=== PATIENT | male | born 1985 | race Two or more races ===

== ENCOUNTER 2019-08-20 17:11 | Emergency (ER) | payer SELFPAY ==
[~2019-08-20] VITALS: Ht 188 cm; Wt 136.1 kg
[2019-08-20] MEDS ORDERED: NAPROSYN500 MG PO (17:34)
--- NOTE | 2019-08-20 17:43 | Emergency Department Note ---
History of Present Illnes History of Present Illness History of Present Illness This is a 34 year old male . Arrival Mode: Car Rn Visiting Required: No Onset (how long ago): minute(s) (ESTIMATOR) Location: Left wrist Quality: pain Radiation: Reports non-radiation Severity: moderate Onset quality: sudden Timing of current episode: constant Progression: unchanged Context: Denies recent illness, Denies recent surgery, Denies recent immobilization, Denies recent travel, Denies trauma/injury, Denies new medications, Denies hx of DVT/PE, Denies non-compliance w/ medications, Denies other Relieving factors: other (Tylenol #3) Exacerbating factors: movement Associated symptoms: Denies denies other symptoms, Denies confusion, Denies chest pain, Denies cough, Denies diaphoresis, Denies fever/chills, Denies headaches, Denies loss of appetite, Denies malaise, Denies nausea/vomiting, Denies rash, Denies seizure, Denies shortness of breath, Denies syncope, Denies weakness, Denies other Treatments prior to arrival: other (Tylenol #3) Risk factors: Pt denies CP, jaw pain, sob, his left wrist pain is wore when he moves wris Past Medical/Family History Physician Review I have reviewed the patient's past medical and family history. Any updates have been documented here. Past Medical History Recent Fever: No Past Medical History: None Past Surgical History: None Social History Smoking Cessation: Smoker current status unk Alcohol Use: None Any Illegal Drug Use: No Review of Systems Review of Systems Constitutional: Denies no symptoms, Denies as per HPI, Denies chills, Denies diaphoresis, Denies fever, Denies malaise, Denies weakness, Denies other EENTM: Denies no symptoms, Denies as per HPI, Denies eye pain, Denies blurred vision, Denies tearing, Denies double vision, Denies ear pain, Denies ear discharge, Denies nose pain, Denies nose congestion, Denies throat pain, Denies throat swelling, Denies mouth pain, Denies mouth swelling, Denies other Cardiovascular: Denies no symptoms, Denies as per HPI, Denies chest pain, Denies edema, Denies palpitations, Denies syncope, Denies other Respiratory: Denies no symptoms, Denies as per HPI, Denies change in phlegm color, Denies chest congestion, Denies cough, Denies hemoptysis, Denies e xcessive phlegm production, Denies pain on inspiration, Denies pain with cough, Denies dyspnea, Denies dyspnea on exertion, Denies snoring, Denies stridor, Denies wheezing, Denies other Gastrointestinal: Denies no symptoms, Denies as per HPI, Denies abdominal pain, Denies constipation, Denies diarrhea, Denies nausea, Denies vomiting, Denies other Musculoskeletal: Reports joint pain Integumentary: Reports no symptoms Neurological: Reports no symptoms Psychological: Reports no symptoms Review of other systems: All other systems negative Physical Exam Related Data Vital signs reviewed: Yes Physical Exam CONSTITUTIONAL Constitutional: Present well-nourished, Present obese HENT HENT: Present normocephalic EYES Eyes: Reports conjunctivae normal NECK Neck: Present supple PULMONARY Pulmonary: Present breath sounds normal CARDIOVASCULAR Cardiovascular: Present regular rhythm GASTROINTESTINAL Abdominal: Present soft GENITOURINARY SKIN Skin: Present warm, Present erythema MUSCULOSKELETAL Musculoskeletal: Present other (pain with range of motion left wrist) NEUROLOGICAL Neurological: Present alert, Present oriented x 3 PSYCHOLOGICAL Psychological: Present mood/affect normal Results Laboratory Lab results reviewed: Yes Laboratory comments CBC WBC 11,000 CMP Normal Trop Normal Procedures 12 Lead ECG Interpretation ECG Interpretation : ECG: ECG 1 Date: Aug 20, 2019 Prior ECG tracings: reviewed Rhythm: sinus rhythm Rate: normal QRS axis: normal ST segments normal: Yes T waves normal: Yes Q waves: III, aVF Clinical Impression: non-specific ECG Additional Comments Possible old inf AL otherwise Normal Clinical Decision Tools HEART Score HEART Score: HEART Score Response (Comments) Value History Slightly suspicious 0 EKG Normal 0 Age < 45 0 Risk factors 1 or 2 risk factors 1 Troponin 1-3x normal limit Total 1 Assessment & Plan Medical Decision Making MDM tendinitis, arthalgia, anginal equivalent Reassessment Reassessment Pt wanted to leave understood that this was an incomplete work up and we can not tell if this is heart related or not. He understand he could have an AL and or even . He is going to sign AMA paperwork but we will give him discharge paperwork for follow up Assessment & Plan Final Impression: (1) Hypertension (2) Pain in joint of left wrist (3) Abnormal EKG Depart Disposition: AGAINST MEDICAL ADVICE Home Meds Active Scripts Naproxen (NAPROSYN) 500 Mg Tablet, 500 MG PO BID for 7 Days, #15 TAB Prov:GERARDO MADDEN MD 08/20/19 GERARDO MADDEN MD Aug 20, 2019 17:43
[2019-08-20] MEDS ORDERED: KETOROLAC TROMETHAMINE 60 MG/2 ML VIAL IM ONE (17:45)
--- NOTE | 2019-08-20 17:48 | NUR ---
PT REFUSED XRAY, STATED HE IS WORRIED ABOUT HIS HEART. PT DENIES PAIN TO CHEST STATES HE IS CONCERNED BECAUSE PAIN WAS SUDDEN ONSET.
[2019-08-20] MEDS ORDERED: KETOROLAC TROMETHAMINE 30 MG/ML VIAL IV STA (18:11)
[2019-08-20 19:22] VITALS: BP 148/89
== END 2019-08-20 19:33 | disposition home or self-care (01) ==
LOC: FSED 17:11
DX: M25.532 Pain in left wrist (principal); I10 Essential (primary) hypertension; R94.31 Abnormal electrocardiogram [ECG] [EKG]; F17.210 Nicotine dependence, cigarettes, uncomplicated
CPT/HCPCS: 99284; J1885 ×2; 93005